=== PATIENT | female | born 1945 | race Caucasian/White ===

== ENCOUNTER 2018-07-17 06:11 | Day surgery (SDC) | payer OTHER ==
[2018-07-16 13:17] VITALS: BMI 26.8
[2018-07-17] MEDS ORDERED: DESFLURANE GAS 240 ML BOTTLE IH ONE (07:14)
[2018-07-17] MEDS ORDERED: LIDOCAINE HCL/PF 2% SDV 5ML VIAL ONE (07:16)
[2018-07-17] MEDS ORDERED: DEXAMETHASONE SOD PHOSPHATE 4 MG/1 ML VIAL ONE (07:16)
[2018-07-17] MEDS ORDERED: SUCCINYLCHOLINE CHLORIDE 200 MG/10 ML VIAL ONE (07:17)
[2018-07-17] MEDS ORDERED: MIDAZOLAM HCL 2 MG/2 ML SINGLE DOSE VIAL ONE (07:17)
[2018-07-17] MEDS ORDERED: PROPOFOL 20 ML ONE (07:17)
--- NOTE | 2018-07-17 07:28 | HP ---
History & Physical Update - History History: No Change - Physical Physical: No Change - Assessment Assessment: No Change - Plan Plan: No Change (H&P consistent with 07/06/18 consent signed and witnessed)
[2018-07-17] MEDS ORDERED: IBUPROFEN 800 MG/8 ML IJ IVPB PRN (07:32)
[2018-07-17] MEDS ORDERED: ONDANSETRON 4 MG/2 ML VIAL IVPUSH PRN (07:32)
[2018-07-17] MEDS ORDERED: IBUPROFEN 600 MG TABLET (FP) PO PRN (07:32)
[2018-07-17] MEDS ORDERED: oxyCODONE HCL 5 MG TABLET PO PRN (07:32)
--- NOTE | 2018-07-17 07:38 | OP ---
Operative Note - Note: Operative Date: 07/17/18 Pre-Operative Diagnosis: 72yo P2 with thick endometrium, suspected polyp, fluid in the endometrial canal Operation: Hysteroscopy, Lysis of adhesions, Polypectomy, D&C Findings: Stenotic cervical os, opened with # 11 blade, copious clear fluid exited the cervix, scarred endometrium, Right ostia only visualized Post-Operative Diagnosis: Other (and scarred endometrium and cervix) Surgeon: Nancy Cruz Anesthesiologist/REHABILITATION CONSTRUCTION SPECIALIST: Khushbu Valdez Anesthesia: MAC Estimated Blood Loss (mls): 5 Instrument used (Debridements only): Symphion Hysteroscope and resectoscope Drains & Tubes with Location: 200cc Fluid deficit Drains, Volume Out (mls): 100 Fluid Volume Replaced (mls): 750 Operative Report Dictated: Yes
[2018-07-17] MEDS ORDERED: ELECTROLYTE-148 SOLN 1,000 ML IV SCH (07:45)
[2018-07-17] MEDS ORDERED: KETOROLAC TROMETHAMINE 30 MG/1 ML VIAL ONE (07:59)
[2018-07-17] MEDS ORDERED: ACETAMINOPHEN 325 MG TABLET (FP) ONE (09:28)
[2018-07-17 10:39] VITALS: BP 141/75; PULSE 65; TEMP 97.8
--- NOTE | 2018-07-17 21:07 | OP ---
DATE OF OPERATION: 07/17/2018 PREOPERATIVE DIAGNOSES: A 72-year-old para 2 with thick endometrium, suspected polyp; fluid in the endometrial canal. POSTOPERATIVE DIAGNOSES: A 72-year-old para 2 with thick endometrium, suspected polyp; fluid in the endometrial canal, as well as scarred endometrium and cervix, stenotic cervical os, and scarred endometrium with overgrown lining. Suspected all submucosal fibroids. OPERATION: Hysteroscopy, lysis of adhesions, polypectomy, dilatation and curettage. FINDINGS: Stenotic cervical os opened with 11 blade. Copious clear fluid exited the cervix. Scarred endometrium. Right ostia only visualized. SURGEON: Nancy Cruz MD ANESTHESIOLOGIST: JANNA Lobo ANESTHESIA: MAC. DESCRIPTION OF OPERATIVE PROCEDURE: After assuring informed consent, patient was brought to the operating room where she was placed in dorsal lithotomy position. Perineum and vagina were prepped and draped in sterile fashion. Symphion hysteroscope was assembled, primed, wide balanced. The Alanis retractors were placed into the vagina. Cervix was visualized, atrophic and stenotic. Anterior and posterior lips were grasped with single-tooth tenaculum, and 11 blade was used to open the completely closed cervical os which then produced significant amount of clear mucus-like fluid. Cervix was dilated to accommodate 6.3-mm Symphion hysteroscope which was introduced, and endometrial cavity was visualized. It was found to be scarred. The resectoscope was introduced through the Symphion hysteroscope, and endometrial curettings and lysis of adhesions were performed. Polypoid-like tissue was removed as well. Sharp curettage was performed subsequently. Excellent hemostasis was noted. All instruments were removed from uterus, cervix, and vagina. All instrument count was correct x2. Estimated blood loss was 5 mL. Patient drained 100 mL of urine at the beginning of the procedure, received 700 mL of IV fluids, and fluid deficit was found to be 200 mL at the end of the procedure. Patient was brought to recovery room in stable condition. Jesus [id number]
--- NOTE | 2018-07-18 09:36 | PATH ---
Surgical Pathology Report Patient Name: JOSE M FINK [facility]. Rec. #: [id number] /Age/Gender: 1945 (Age: 72) / F Account: [id number] Location: [facility] SURGICAL Taken: 07/17/2018 Received: 07/17/2018 Reported: 07/18/2018 Physicians: Nancy Cruz M.D. Specimen(s) Received A: ENDOMETRIAL CURETTINGS B: ENDOMETRIAL POLYP Clinical History Endometrium thickened, endometrial polyp Final Diagnosis A. ENDOMETRIUM, CURETTING: BENIGN SQUAMOUS EPITHELIUM, ENDOCERVICAL EPITHELIUM AND HEMORRHAGIC MATERIAL. NO INTACT ENDOMETRIUM IDENTIFIED. B. ENDOMETRIUM, CURETTING AND POLYPECTOMY: BENIGN MYOMETRIAL TISSUE SUGGESTIVE OF SUBMUCOSAL LEIOMYOMA, AND BENIGN ENDOCERVICAL MUCOSA WITH GLANDULAR DILATATION AND PROMINENT BLOOD VESSELS SUGGESTIVE OF ENDOCERVICAL POLYP. NO ENDOMETRIAL HYPERPLASIA OR CARCINOMA IDENTIFIED. Electronically Signed Rahul Willis M.D. Gross Description A. Received in formalin labeled "endometrial curettings," is a 0.1 x 0.1 x 0.1 cm aggregate of red soft tissue fragments. The formalin is filtered and the specimen is entirely submitted in one cassette. B. Received in formalin labeled "endometrial curetting, endometrial polyp," is a 2.0 x 1.7 x 0.2 cm aggregate of flores soft tissue fragments admixed with mucus. The formalin is filtered and the specimen is entirely submitted in one cassette. /07/17/2018 saudi07/17/2018
== END 2018-07-17 12:00 | disposition home or self-care (01) ==
LOC: JASU-SURG 06:11
PROVIDERS: ATTEND Obstetrics & Gynecology
PROC: 0UJD8ZZ Inspection of Uterus and Cervix, Via Natural or Artificial Opening Endoscopic (ICD-10-PCS; 2018-07-17)
PROC: 0UN98ZZ Release Uterus, Via Natural or Artificial Opening Endoscopic (ICD-10-PCS; principal; 2018-07-17 07:30)
PROC: 0UDB7ZX Extraction of Endometrium, Via Natural or Artificial Opening, Diagnostic (ICD-10-PCS; 2018-07-17 07:30)
DX: N85.6 Intrauterine synechiae (principal)
CPT/HCPCS: 88305-TC; 94760